=== PATIENT | female | born 1955 | race Caucasian/White ===

== ENCOUNTER → 2019-03-12 | Outpatient (CLI) | payer BC ==
[2019-03-12 10:33] LABS: HCT 45.2 % (34.0-46.0); HGB 14.4 gm/dL (11.4-16.0); MCH 27.8 pg (25.0-35.0); MCHC 31.8 g/dL (31.0-37.0); MCV 87.6 fL (80.0-100.0); Mean Platelet Volume 6.7; Platelet Count 286 k/uL (150-450); RBC 5.16 m/uL (3.80-5.40); RDW 13.6 % (11.5-15.5); WBC 7.7 k/uL (3.8-10.6)
[2019-03-12 10:47] LABS: Potassium 4.8 mmol/L (3.5-5.1)
== END ==
LOC: LABPAT 09:26
PROVIDERS: ATTEND Internal Medicine Cardiovascular Disease
DX: Z01.812 Encounter for preprocedural laboratory examination (principal); E78.2 Mixed hyperlipidemia; R93.1 Abnormal findings on diagnostic imaging of heart and coronary circulation
CPT/HCPCS: 80051; 82565; 82947; 84520; 85027

== ENCOUNTER 2019-03-19 07:47 | Day surgery (SDC) | payer BC ==
[2019-03-16 14:52] VITALS: BMI 36.6
[2019-03-19] MEDS ORDERED: SODIUM CHLORIDE 0.9% 1,000 ML IV ONE (08:01)
[2019-03-19] MEDS ORDERED: ASPIRIN 325 MG TAB PO STA (08:05)
[2019-03-19] MEDS ORDERED: SODIUM CHLORIDE 0.9% 1,000 ML in EMPTY BAG 1 BAG IV ONE (08:05)
[2019-03-19] MEDS ORDERED: NITROGLYCERIN SL TABS 0.4 MG TAB SUBLINGUAL PRN (08:05)
[2019-03-19] MEDS ORDERED: ALPRAZolam 0.25 MG TAB PO PRN (08:05)
[2019-03-19] MEDS ORDERED: ATORVASTATIN 80 MG TAB PO STA (08:05)
[2019-03-19] MEDS ORDERED: ALPRAZolam 0.5 MG TAB PO PRN (08:05)
[2019-03-19 08:32] LABS: Glucose,Whole Blood 110 mg/dL (75-99)
[2019-03-19 08:33] VITALS: TEMP 98.8
[2019-03-19] MEDS ORDERED: LIDOCAINE 1% INJ 10MG/ML (20 ML MDV) ONE (08:45)
[2019-03-19] MEDS ORDERED: fentaNYL (PF) 50 MCG/ML 2 ML AMP ONE (08:45)
[2019-03-19] MEDS ORDERED: MIDAZOLAM (PF) 2 MG/2 ML VIAL IV ONE (09:04)
[2019-03-19] MEDS ORDERED: LIDOCAINE 1% INJ 10MG/ML (20 ML MDV) SQ ONE (09:08)
[2019-03-19] MEDS ORDERED: IOPAMIDOL-370 125ML BTL INJ ONE (09:17)
[2019-03-19] MEDS ORDERED: RX INFO: IV CONTRAST WAS GIVEN 1 EACH MISC MISCELLANE PRN (09:21)
[2019-03-19] MEDS ORDERED: SODIUM CHLORIDE 0.9% 1,000 ML IV SCH (09:30)
--- NOTE | 2019-03-19 09:39 | CC ---
CARDIAC CATHETERIZATION REPORT INDICATION: Chest pain with abnormal stress test. PROCEDURE NOTE: After obtaining informed consent, left heart catheterization, coronary angiogram are performed via the right femoral artery using standard Zo catheters. Patient tolerated the procedure well without any obvious immediate complications. A femoral angiogram was performed, was made for manual hemostasis. FINDINGS: HEMODYNAMICS: Left ventricular end-diastolic pressure is 10-12 mm. There is no significant gradient across the aortic valve. LEFT VENTRICULOGRAM: Left ventriculogram is not performed. ANGIOGRAPHIC DATA LEFT MAIN CORONARY ARTERY: Left main coronary artery is a normal-sized vessel and is free of stenosis. Divides into left anterior descending coronary artery and circumflex coronary artery. LAD and its branches, circumflex coronary artery and its branches are free of significant stenosis. Right coronary artery is a large dominant vessel and is free of significant disease. CONCLUSION: 1. Normal coronary arteries. 2. Normal left ventricular end-diastolic pressure. PLAN: Patient's chest discomfort is noncardiac in origin and stress test is a false positive stress test. MMODL / IJN: [id number] /
[2019-03-19] MEDS ORDERED: HYDROcodone/APAP 10-325MG 1 EACH TAB ONE (10:13)
[2019-03-19 10:59] VITALS: RESP 16
[2019-03-19 16:36] VITALS: BP 106/65; PULSE 65
== END 2019-03-19 16:47 | disposition home or self-care (01) ==
LOC: CATHCVL 07:47
PROVIDERS: ATTEND Internal Medicine Cardiovascular Disease
DX: R07.89 Other chest pain (principal); R93.1 Abnormal findings on diagnostic imaging of heart and coronary circulation; I10 Essential (primary) hypertension; E11.9 Type 2 diabetes mellitus without complications; F17.210 Nicotine dependence, cigarettes, uncomplicated; E78.2 Mixed hyperlipidemia; Z82.49 Family history of ischemic heart disease and other diseases of the circulatory system; Z79.890 Hormone replacement therapy; Z79.899 Other long term (current) drug therapy
CPT/HCPCS: 93458; C1894; C1769; J2001; Q9967; J2250

== ENCOUNTER → 2019-05-07 | Outpatient (CLI) | payer BC ==
--- NOTE | 2019-05-07 09:09 | CT ---
EXAMINATION TYPE: CT chest w con DATE OF EXAM: 05/07/2019 COMPARISON: CT 2014 HISTORY: COPD, cough, SOB CT DLP: 607.4 mGycm. Automated Exposure Control for Dose Reduction was Utilized. TECHNIQUE: CT scan of the thorax is performed following with IV Contrast, patient injected with 100 mL of Isovue 300. FINDINGS: LUNGS: Moderate underlying chronic emphysematous and parenchymal fibrotic changes bilaterally with la tter most prominent in the lung bases near diaphragm. No suspicious nodules or masses. No suspicious focal consolidation. No pleural effusion or pneumothorax. MEDIASTINUM: There are no greater than 1 cm hilar or mediastinal lymph nodes. No pericardial effusi on is seen. Coronary artery calcification is seen which is noted marked underlying coronary artery d isease. Mild/moderate calcified plaque of the aorta OTHER: [id number] multilevel spurring in the thoracic spine. Stimulator device terminates mid thoracic spinal canal with some coiling noted inferiorly. Cholecystectomy clips are present. IMPRESSION: Mild emphysematous change upper lungs with mild bilateral fibrotic changes. No suspicious acute pulmonary process.
== END | disposition home or self-care (01) ==
LOC: RADCTMAIN 06:46
PROVIDERS: ATTEND Family Medicine
DX: J44.9 Chronic obstructive pulmonary disease, unspecified (principal); J47.9 Bronchiectasis, uncomplicated
CPT/HCPCS: 71260; Q9967

== ENCOUNTER → 2019-08-20 | Outpatient (CLI) | payer BC ==
--- NOTE | 2019-08-20 09:09 | MR ---
EXAMINATION TYPE: MR knee LT wo con DATE OF EXAM: 08/20/2019 COMPARISON: NONE HISTORY: Left knee pain prior order. History of prior surgery with patella removed. Patient states hi story of on and off pain for 40 weeks with increasing outer pain over last 6 weeks. TECHNIQUE: Multiplanar, multisequence images of the knee is performed without IV contrast. FINDINGS: Exam noted suboptimal due to patient's large body habitus, dedicated knee coil could not be utilized. MEDIAL MENISCUS: Anterior horn is intact without tear. Posterior horn shows truncated appearance with abnormal central irregular signal extending to articular surface. LATERAL MENISCUS: Posterior horn shows irregular linear signal extending to inferior articular surfac e sagittal maturity. Anterior horn is truncated with abnormal signal extending to articular surfaces. Lateral extrusion lateral meniscus seen on coronal images CRUCIATE LIGAMENTS: The posterior cruciate ligament is intact and unremarkable. Anterior cruciate lig ament is thickened with abnormal signal but fibers remain intact. COLLATERAL LIGAMENTS: The medial collateral ligament is intact and unremarkable. Biceps femoris is in tact. Other more anterior structures of lateral collateral ligament complex are not visualized suspec zay surgically absent or torn. Correlate clinically. EXTENSOR MECHANISM: Patella surgically absent thickening of the distal quadriceps tendon which contin ues into the patellar tendon with areas of increased signal. EFFUSION: No significant suprapatellar joint effusion. POPLITEAL CYST: No popliteal/ibanez cyst. TRICOMPARTMENT SPACES: Moderate narrowing and spurring medial tibiofemoral and lateral tibiofemoral c ompartments. CARTILAGE: Thinning of articular cartilage medial tibiofemoral compartment deep aspect. BONE MARROW SIGNAL: No focal abnormal marrow signal is appreciated. OTHER: No additional significant abnormality is appreciated. IMPRESSION: 1. Absent patella with tendinopathy of the anterior extensor tendon. 2. Full-thickness tear lateral meniscus involving anterior and posterior horns. 3. Full-thickness tear posterior horn medial meniscus. 4. Moderate degenerative changes medial and lateral tibiofemoral compartments as detailed above. 5. Myxoid degeneration ACL. 6. Suspect prior resection anterior portion lateral collateral ligament complex, correlate clinically . If not favor remote injury or tear as there is no suspicious osseous edema.
== END | disposition home or self-care (01) ==
LOC: RADMRIMAIN 08:04
PROVIDERS: ATTEND Orthopaedic Surgery
DX: M17.12 Unilateral primary osteoarthritis, left knee (principal); S83.282A Other tear of lateral meniscus, current injury, left knee, initial encounter; S83.242A Other tear of medial meniscus, current injury, left knee, initial encounter

== ENCOUNTER → 2019-09-08 | Outpatient (CLI) | payer BC ==
[2019-09-08 10:00] LABS: Basophils # (A) 0.1 k/uL (0-0.2); Basophils % (A) 1 %; Eosinophils # (A) 0.3 k/uL (0-0.7); Eosinophils % (A) 4 %; HCT 44.9 % (34.0-46.0); HGB 14.3 gm/dL (11.4-16.0); Lymphocytes # (A) 3.2 k/uL (1.0-4.8); Lymphocytes % (A) 42 %; MCH 28.8 pg (25.0-35.0); MCHC 31.7 g/dL (31.0-37.0); MCV 90.6 fL (80.0-100.0); Mean Platelet Volume 7.4; Monocytes # (A) 0.4 k/uL (0-1.0); Monocytes % (A) 5 %; Neutrophils # (A) 3.6 k/uL (1.3-7.7); Neutrophils % (A) 46 %; Platelet Count 284 k/uL (150-450); RBC 4.96 m/uL (3.80-5.40); RDW 12.6 % (11.5-15.5); WBC 7.7 k/uL (3.8-10.6)
[2019-09-08 10:07] LABS: Potassium 4.9 mmol/L (3.5-5.1)
== END | disposition home or self-care (01) ==
LOC: LABPAT 09:22
PROVIDERS: ATTEND Orthopaedic Surgery
DX: Z01.812 Encounter for preprocedural laboratory examination (principal); M23.92 Unspecified internal derangement of left knee
CPT/HCPCS: 36415; 80051; 85025

== ENCOUNTER 2019-09-23 08:49 | Day surgery (SDC) | payer BC ==
[2019-09-21 09:30] VITALS: BMI 41.1
--- NOTE | 2019-09-22 14:04 | HP ---
HISTORY AND PHYSICAL DATE OF SURGERY: 09/23/2019 Nanette Fisher is a 64-year-old patient seen with progressive left knee pain. We discussed options for treatment. She elected to proceed with arthroscopy. Consent was obtained. PAST MEDICAL HISTORY: Hypertension, hyperlipidemia, hypothyroidism, gastroesophageal reflux disease. PAST SURGICAL HISTORY: Left knee arthroscopy, cervical fusion. MEDICATIONS: 1. Diovan/hydrochlorothiazide. 2. Glipizide. 3. Lipitor. 4. [place]. 5. . 6. Synthroid. ALLERGIES: None. SOCIAL HISTORY: She denies current tobacco use. PHYSICAL EVALUATION OF THE LEFT KNEE: Range of motion is -3 to 130 degrees. There is a mild effusion present. She is tender along the medial joint line. Tender along lateral joint line. Positive medial Christi's. Positive lateral Christi's. Crepitus medial lateral compartments with range of motion. Ligaments are stable. Hip rotation is without pain. Distal neurovascular exam is intact. RADIOGRAPHS OF THE LEFT KNEE: Reveal osteoarthritic changes. Evidence of previous patellectomy. An MRI left knee revealed medial and lateral meniscal tears. IMPRESSION: 1. Internal derangement, left knee with medial and lateral meniscal tears. 2. Left knee osteoarthritis. 3. History of previous left knee patellectomy. 4. Hypertension. 5. Hyperlipidemia. PLAN: Left knee arthroscopy with partial meniscectomy, partial synovectomy and debridement. MMODL / IJN: [id number] /
[~2019-09-23 08:49] MED LIST: LACTATED RINGERS 1,000 ML IV SCH; LIDOCAINE 1% 20 ML VIAL (10MG/ML) FOR IV START INTRADERMA PRN; ONDANSETRON 4 MG/2 ML VIAL IVP ONE
[2019-09-23 09:27] LABS: Glucose,Whole Blood 182 mg/dL (75-99)
[2019-09-23] MEDS ORDERED: SCOPOLAMINE 1.5MG/72HR PATCH TRANSDERM ONE (09:27)
[2019-09-23] MEDS ORDERED: PROPOFOL 10 MG/ML 20 ML VIAL IV ONE (10:10)
[2019-09-23] MEDS ORDERED: LIDOCAINE 1% INJ 10MG/ML (20 ML MDV) ONE (10:10)
[2019-09-23] MEDS ORDERED: PHENYLEPHRINE-0.9% NACL SYG 1 MG/10 ML SYRINGE ONE (10:10)
[2019-09-23] MEDS ORDERED: fentaNYL (PF) 50 MCG/ML 2 ML AMP ONE (10:10)
[2019-09-23] MEDS ORDERED: BUPIVACAINE (PF) 0.25% 30 ML VIAL INTRAARTIC ONE (10:11)
[2019-09-23 11:07] VITALS: TEMP 98.2
[2019-09-23] MEDS: HYDROmorphone 0.5 MG/0.5 ML SYRINGE IVP PRN ×4 (11:13→11:35)
--- NOTE | 2019-09-23 11:14 | P.OP ---
Date of Procedure: 09/23/19 Preoperative Diagnosis: Internal derangement left knee Postoperative Diagnosis: 1. Tear lateral meniscus left knee 2. Reactive synovitis medial, lateral and suprapatellar compartments left knee Procedure(s) Performed: 1. Arthroscopic partial lateral meniscectomy left knee 2. Arthroscopic partial synovectomy medial, lateral and suprapatellar compartments left knee Anesthesia: CARLITOSA, local Surgeon: Willie Etienne Estimated Blood Loss (ml): 8 Pathology: none sent Condition: stable Disposition: PACU Indications for Procedure: 64-year-old patient seen with progressive left knee pain. After having treatment options discussed, she elected to proceed with arthroscopy. Operative Findings: See description of procedure Description of Procedure: Patient was taken to the operative suite. Patient underwent a general anes thetic by the department of anesthesia. Patient was given preoperative antibiotics. The left lower extremity was placed in a well-padded arthroscopic leg kilgore. The left leg was prepped and draped in the normal sterile orthopedic fashion. A lateral parapatellar and suprapatellar incision was made. Trochars were inserted. Arthroscopy was initiated. Suprapatellar pouch revealed diffuse thick reactive synovitis. The patella was absent with history of previous patellectomy. The scope was guided into the medial gutter. No loose bodies or plica were identified . The scope was then guided into the medial compartment. A medial parapatellar incision was made. Trocar inserted followed by probe. There was some fraying along the posterior medial meniscus. There were grade 2 chondromalacia changes the medial femoral condyle with no osteochondral flap tears present. There was thick reactive synovitis anteriorly. I debrided that superficial fraying of the meniscus posteriorly. I performed a partial synovectomy decompressing the thick reactive synovitis. The shaver was removed. There was good decompression of the synovitis. Scope and probe were then guided into the intercondylar notch. Cruciates were identified, probed and found to be stable. The scope and probe were then guided into lateral compartment. The lateral meniscus revealed a complex tear involving the anterior horn and midbody which did extend to the posterior horn. There were grade 2/3 chondromalacia changes lateral compartment with no osteochondral tears present. There was thick reactive synovitis anteriorly. I performed a partial lateral meniscectomy. I performed a partial synovectomy decompressing the reactive synovitis. The residual meniscus was stable. There was good decompression of the synovitis. The scope was in guided back into the suprapatellar compartment. I introduced a motorized shaver into the suprapatellar compartment. I debrided some piecemeal fragments of meniscus I encountered. I performed a partial synovectomy. Shaver was removed. I took one more look on the entire knee, no residual debris. Instruments were now removed from the joint. The joint was infiltrated with .25% Marcaine. Steri- Strips were applied to the portal sites. Sterile dressings were applied. The patient was placed into a GOLDIE hose. No tourniquet was utilized. The patient was awakened, transferred to a bed and taken to recovery stable satisfactory condition.
[2019-09-23] MEDS ORDERED: LACTATED RINGERS 1,000 ML IV ONE (11:34)
[2019-09-23 11:36] VITALS: RESP 16
[2019-09-23 12:30] VITALS: BP 130/84; PULSE 70
== END 2019-09-23 13:11 | disposition home or self-care (01) ==
LOC: OR 08:49
PROVIDERS: ATTEND Orthopaedic Surgery
DX: S83.272A Complex tear of lateral meniscus, current injury, left knee, initial encounter (principal); S83.242A Other tear of medial meniscus, current injury, left knee, initial encounter; M94.262 Chondromalacia, left knee; M65.9 Synovitis and tenosynovitis, unspecified; M17.12 Unilateral primary osteoarthritis, left knee; I10 Essential (primary) hypertension; E11.9 Type 2 diabetes mellitus without complications; E78.5 Hyperlipidemia, unspecified; J44.9 Chronic obstructive pulmonary disease, unspecified; E03.9 Hypothyroidism, unspecified; E66.01 Morbid (severe) obesity due to excess calories; K21.9 Gastro-esophageal reflux disease without esophagitis; Z98.1 Arthrodesis status; Z79.890 Hormone replacement therapy; Z79.891 Long term (current) use of opiate analgesic; Z79.84 Long term (current) use of oral hypoglycemic drugs; Z68.41 Body mass index [BMI] 40.0-44.9, adult; Z79.82 Long term (current) use of aspirin; Z79.899 Other long term (current) drug therapy; Z87.891 Personal history of nicotine dependence; X58.XXXA Exposure to other specified factors, initial encounter
CPT/HCPCS: 29881; 29876; J0690; J2405; J2001; J3010; J2370; J2704; J1170

== ENCOUNTER → 2020-02-10 | Outpatient (CLI) | payer BC ==
--- NOTE | 2020-02-10 11:57 | MR ---
EXAMINATION TYPE: MR knee RT wo con DATE OF EXAM: 02/10/2020 COMPARISON: Prior right knee x-ray January 11, 2020. HISTORY: Right Knee pain, [place]. Surg hx 30years ago. TECHNIQUE: Multiplanar, multisequence images of the knee is performed without IV contrast. FINDINGS: MEDIAL MENISCUS: Anterior horn is intact without tear. Posterior horn is truncated particularly along the posterior superior margin with 3 to 4 mm para meniscal cyst sagittal image 8. Central increased signal is present. LATERAL MENISCUS: Posterior horn is intact without tear. Anterior horn is abnormal with irregular inc reased signal along the anterior aspect extending to inferior articular surface sagittal image 24 for reference. CRUCIATE LIGAMENTS: The anterior and posterior cruciate ligaments are intact and unremarkable. COLLATERAL LIGAMENTS: The medial collateral ligament and lateral collateral ligament complex are inta ct and unremarkable. EXTENSOR MECHANISM: Visualized quadriceps and patellar tendons are intact. EFFUSION: There is large suprapatellar joint effusion. POPLITEAL CYST: No popliteal/ibanez cyst. TRICOMPARTMENT SPACES: Moderate narrowing patellofemoral compartment and medial tibiofemoral compartm ent. Mild tricompartment joint space burning. CARTILAGE: Evidence for chondromalacia patella with fissuring and cartilaginous loss along the die storage clerk ior patellar pole. There is additional fissuring and cartilaginous loss posterior deep aspect of the lateral tibial femoral compartment. BONE MARROW SIGNAL: Heterogeneous increased T2 signal involving the lateral tibial plateau centered p osteriorly with small irregular focus of low T1 signal seen best on sagittal image 26 and axial image 22 abutting the articular surface measuring approximately 5 mm in length. OTHER: No additional significant abnormality is appreciated. IMPRESSION: 1. Full-thickness tear posterior horn of medial meniscus. 2. Full-thickness tear anterior horn of lateral meniscus. 3. Fairly moderate tricompartment degenerative changes as detailed above. 4. Large suprapatellar joint effusion. 5. Small 5 mm subchondral insufficiency fracture with associated bone marrow edema centered posterior lateral aspect of the lateral tibial plateau. 6. Moderate tricompartment degenerative changes as detailed above.
== END | disposition home or self-care (01) ==
LOC: RADMRIMAIN 10:42
PROVIDERS: ATTEND Orthopaedic Surgery
DX: S83.241A Other tear of medial meniscus, current injury, right knee, initial encounter (principal); S83.281A Other tear of lateral meniscus, current injury, right knee, initial encounter; M25.861 Other specified joint disorders, right knee; M84.48XA Pathological fracture, other site, initial encounter for fracture

== ENCOUNTER → 2020-02-16 | Outpatient (CLI) | payer BC ==
[2020-02-16 12:39] LABS: Potassium 4.7 mmol/L (3.5-5.1)
[2020-02-16 12:52] LABS: Basophils % (A) 1 %; Eosinophils # (A) 0.2 k/uL (0-0.7); Eosinophils % (A) 3 %; HCT 42.2 % (34.0-46.0); HGB 13.4 gm/dL (11.4-16.0); Hypochromasia Moderate; Lymphocytes # (A) 1.8 k/uL (1.0-4.8); Lymphocytes % (A) 29 %; MCH 28.9 pg (25.0-35.0); MCHC 31.8 g/dL (31.0-37.0); Mean Platelet Volume 7.9; Monocytes # (A) 0.3 k/uL (0-1.0); Monocytes % (A) 4 %; Neutrophils # (A) 3.8 k/uL (1.3-7.7); Neutrophils % (A) 61 %; Platelet Count 246 k/uL (150-450); RBC 4.64 m/uL (3.80-5.40); RDW 13.2 % (11.5-15.5); WBC 6.2 k/uL (3.8-10.6)
== END | disposition home or self-care (01) ==
LOC: LABPAT 10:40
PROVIDERS: ATTEND Orthopaedic Surgery
DX: Z01.818 Encounter for other preprocedural examination (principal); M23.91 Unspecified internal derangement of right knee
CPT/HCPCS: 36415; 80051; 85025; 93005

== ENCOUNTER → 2020-02-21 | Day surgery (SDC) | payer BC ==
[2020-02-18 10:18] VITALS: BMI 43.9
--- NOTE | 2020-02-20 10:51 | HP ---
HISTORY AND PHYSICAL Surgery 02/21/2020 Nanette Fisher is a 64-year-old patient seen with progressive right knee pain. We discussed options for treatment. She elected to proceed with arthroscopy. Consent was obtained. PAST MEDICAL HISTORY: Hypertension, hyperlipidemia, qbo-pysljld-xcvpkmjgo diabetes, hypothyroidism. PAST SURGICAL HISTORY: Left knee arthroscopy, cervical fusion. DAILY MEDICATIONS: Aspirin, Diovan, glipizide, Lipitor, [place], Protonix, Synthroid, Topamax. ALLERGIES: None. SOCIAL HISTORY: She denies current tobacco use. PHYSICAL EXAMINATION: Evaluation right knee range of motion is -2 to 70. She has a moderate effusion. Tenderness medial joint line. Positive medial Christi's. Ligaments stable. Hip rotation without pain. Distal neurovascular exam is intact. Right knee radiographs revealed moderate medial compartment osteoarthritis. An MRI of the right knee revealed medial meniscal tear, lateral meniscal tear, and osteoarthritic changes. IMPRESSION: 1. Internal derangement, right knee with medial and lateral meniscal tears. 2. Right knee osteoarthritis. 3. Hypertension. 4. Hyperlipidemia. 5. Wim-flyvxxs-twubbsfls diabetes. 6. Hypothyroidism. PLAN: Right knee arthroscopy with partial meniscectomy, partial synovectomy and debridement. MMODL / IJN: [id number] /
[~2020-02-21] MED LIST changes: +BUPIVACAINE (PF) 0.25% 30 ML VIAL SQ ONE; +DEXAMETHASONE SOD PHOSPHATE 10 MG/ML 1 ML VIAL IV ONE; +KETOROLAC 30 MG/ML 1 ML VIAL IVP ONE; +LACTATED RINGERS 1,000 ML IV ONE; -LIDOCAINE 1% 20 ML VIAL (10MG/ML) FOR IV START INTRADERMA PRN; +LIDOCAINE 1% INJ 10MG/ML (20 ML MDV) ONE; +MIDAZOLAM 2 MG/2 ML VIAL IV PRN; +MIDAZOLAM 2 MG/2 ML VIAL ONE; +ONDANSETRON 4 MG/2 ML VIAL ONE; +PROPOFOL 10 MG/ML 20 ML VIAL IV ONE; +SUCCINYLCHOLINE CHLORIDE 100 MG/5 ML SYR IV ONE; +diphenhydrAMINE 50 MG/ML 1 ML VIAL IVP ONE; +fentaNYL (PF) 50 MCG/ML 2 ML AMP ONE
[2020-02-21 12:33] LABS: Glucose,Whole Blood 176 mg/dL (75-99)
[2020-02-21] MEDS: HYDROmorphone 0.5 MG/0.5 ML SYRINGE IVP PRN ×3 (13:14→13:26)
--- NOTE | 2020-02-21 13:20 | P.OP ---
Date of Procedure: 02/21/20 Preoperative Diagnosis: Internal derangement right knee Postoperative Diagnosis: 1. Tear lateral meniscus right knee 2. Grade 4 chondromalacia medial femoral condyle right knee 3. Grade 3/4 chondromalacia lateral femoral condyle right knee 4. Reactive synovitis medial, lateral and super patellar compartments right knee Procedure(s) Performed: 1. Arthroscopic partial lateral meniscectomy right knee 2. Arthroscopic chondroplasty medial femoral condyle right knee 3. Arthroscopic microfracture medial femoral condyle right knee 4. Arthroscopic chondroplasty lateral femoral condyle right knee 5. Arthroscopic partial synovectomy medial, lateral and suprapatellar compartments right knee Anesthesia: CINDA, local Surgeon: Willie Etienne Estimated Blood Loss (ml): 7 Pathology: none sent Condition: stable Disposition: PACU Indications for Procedure: 64-year-old patient seen with progressive right knee pain. After treatment options were discussed, she elected to proceed with arthroscopy. Operative Findings: See description of procedure Description of Procedure: Patient was taken to the operative suite. Patient underwent a general anesthetic by the department of anesthesia. Patient was given preoperative ant ibiotics. The right lower extremity was placed in a well-padded arthroscopic leg kilgore. The right leg was prepped and draped in the normal sterile orthopedic fashion. A lateral parapatellar and suprapatellar incision was made. Trochars were inserted. Arthroscopy was initiated. Suprapatellar pouch revealed diffuse thick reactive synovitis. The patellofemoral joint appeared to articulate congruently. There was grade 2 chondromalacia of the patella with no osteochondral tears present. The scope was guided into the medial gutter. No loose bodies or plica were identified. The scope was then guided into the medial compartment. A medial parapatellar incision was made. Trocar inserted followed by probe. There was some fraying posterior horn medial meniscus. There were grade 4, changes medial femoral condyle with osteochondral flap tears present. There was thick reactive synovitis anteriorly. I performed a chondroplasty medial femoral condyle. I debrided the anterior fraying in the meniscus. I performed a partial synovectomy decompressing reactive synovitis. There was good decompression of synovitis. There was one area of exposed bone. I performed a microfracture to the area penetrating the bone with some resultant bleeding at the microfracture site. Scope and probe were then guided into the intercondylar notch. Cruciates were identified, probed and found to be table. The scope and probe were then guided into lateral compartment. There was a complex tear lateral meniscus along the anterior horn and midbody. There were grade 3 chondromalacia changes lateral femoral condyle with areas of delamination of the articular surface and osteochondral flap tears. There was thick reactive synovitis anteriorly. I performed a partial lateral meniscectomy. I performed a chondroplasty of the lateral femoral condyle. I performed a partial synovectomy decompressing reactive synovitis. The residual meniscus was stable. The residual osteochondral surface was stable with grade 3 and approaching 4 chondromalacia there. There was good decompression of synovitis. The scope was in guided back into the suprapatellar compartment. I introduced my motorized shaver into the suprapatellar compartment. I debrided some piecemeal fragments of meniscus I encountered. I performed a partial synovectomy decompressing reactive synovitis. The shaver was removed. I took one more look around the entire knee, no residual debris. Instruments were now removed from the joint. The joint was infiltrated with .25% Marcaine. Steri- Strips were applied to the portal sites. Sterile dressings were applied. The patient was placed into a GOLDIE hose. No tourniquet was utilized. The patient was awakened, transferred to a bed and taken to recovery stable satisfactory condition.
[2020-02-21 13:23] VITALS: TEMP 97
[2020-02-21 14:04] VITALS: RESP 16
[2020-02-21 14:21] VITALS: PULSE 76
[2020-02-21 14:25] VITALS: BP 125/76
== END | disposition home or self-care (01) ==
LOC: OR 11:23
PROVIDERS: ATTEND Orthopaedic Surgery
DX: S83.281A Other tear of lateral meniscus, current injury, right knee, initial encounter (principal); S83.241A Other tear of medial meniscus, current injury, right knee, initial encounter; X58.XXXA Exposure to other specified factors, initial encounter; M22.41 Chondromalacia patellae, right knee; M65.861 Other synovitis and tenosynovitis, right lower leg; M17.11 Unilateral primary osteoarthritis, right knee; I10 Essential (primary) hypertension; E78.5 Hyperlipidemia, unspecified; E11.8 Type 2 diabetes mellitus with unspecified complications; J44.9 Chronic obstructive pulmonary disease, unspecified; E03.9 Hypothyroidism, unspecified; Z98.1 Arthrodesis status; Z98.890 Other specified postprocedural states; Z79.84 Long term (current) use of oral hypoglycemic drugs; Z79.82 Long term (current) use of aspirin; Z79.890 Hormone replacement therapy; Z79.891 Long term (current) use of opiate analgesic; Z79.899 Other long term (current) drug therapy
CPT/HCPCS: 29880; 29879; J2250; J1200; J1100; J0690; J2405; J2001; J3010; J1885; J0330; J2704; J1170

== ENCOUNTER → 2022-06-18 | Outpatient (CLI) | payer MEDICARE ==
--- NOTE | 2022-06-19 21:38 | CTL ---
EXAMINATION TYPE: CT Low Dose Lung DATE OF EXAM ORDERED: 06/18/2022 HISTORY: Long-term tobacco use. Lung cancer screening CT DLP: [address] CTDI: 4.0 mGy Automated exposure control for dose reduction was used. SCREENING VISIT: Baseline COMPARISON: Prior chest CT May 07, 2019 TECHNIQUE: Low dose computed tomography scan was performed through the chest at 1 mm thick sections a nd reconstructed images in multiple planes at 1 mm and [address] DIAGNOSTIC QUALITY: Satisfactory FINDINGS: LUNG NODULES: Present, detailed below: Occasional scattered small nodule. For reference there is 3 to 4 mm left upper lobe nodule axial imag e 51 series 15. For reference there is 4 x 3 mm left lower lobe nodule axial image 175. No significan t greater than 5 mm pulmonary nodules seen bilaterally. LUNGS: COPD: Severity: Mild Fibrosis: Severity: None Lymph nodes: None Other findings: None RIGHT PLEURAL SPACE: Effusion: None Calcification: None Thickening: None Pneumothorax: None LEFT PLEURAL SPACE: Effusion: None Calcification: None Thickening: None Pneumothorax: None HEART: Heart Size: Normal Coronary Calcification: At least moderate Pericardial Effusion: None OTHER FINDINGS: Upper abdomen: None Bony thorax: Underlying scoliotic curvature. Multilevel spurring and bridging osteophytes. Supraclavicular region: None Other: None IMPRESSION: Few scattered small nodules. No new or enlarging greater than [address] LUNG RAD AND CT CHEST RECOMMENDATION: Lung-Rad 2 Benign Appearance or Behavior: Continue annual sc reening with LDCT in 12 months. S Modifier (other clinically significant findings): None
== END | disposition home or self-care (01) ==
LOC: RADCTMAIN 14:38
PROVIDERS: ATTEND Family Medicine
DX: Z87.891 Personal history of nicotine dependence (principal)
CPT/HCPCS: 71271

== ENCOUNTER → 2023-02-11 | Outpatient (CLI) | payer MEDICARE, OTHER ==
--- NOTE | 2023-02-11 11:03 | MR ---
EXAMINATION TYPE: MR angio head wo con DATE OF EXAM: 02/11/2023 COMPARISON: NONE HISTORY: Headache TECHNIQUE: Utilizing 3-D [id number] intracranial MRA of the wiyot of Christopher was performed. FINDINGS: The vertebrobasilar and carotid systems are patent. There is no sizable aneurysm or vascular malform ation. Left vertebral artery is dominant. There is a hypoplastic A1 segment of the left anterior cer ebral artery. IMPRESSION: 1. No evidence of vascular malformation or sizable aneurysm.
--- NOTE | 2023-02-11 11:03 | MR ---
EXAMINATION TYPE: MR brain wo/w con DATE OF EXAM: 02/11/2023 COMPARISON: HISTORY: Headache TECHNIQUE: Multiplanar, multisequence images of the brain and brainstem is performed without and with IV contras t, utilizing 9 mL intravenous Gadavist . FINDINGS: Diffusion weighted images demonstrate no evidence of a recent infarct or other diffusion ab normality. There multiple scattered areas of focal abnormal signal throughout the white matter which is nonspecific. Mild generalized degenerative change. The brain volume is age appropriate. Midline structures demonstrate normal morphology. Low-lying cerebellar tonsils at the level of forame n magnum.. Post contrast images demonstrate no abnormal enhancement. The dural venous sinuses appear patent. Mild changes of chronic sinusitis. Orbits are symmetric. There is a 2 mm area of reduced enh ancement in the posterior margin of the pituitary gland paracentral right suspicious for a tiny micro adenoma. IMPRESSION: 1. No acute process. Mild generalized degenerative change and nonspecific white matter changes most t ypical of remote microvascular ischemia. 2. Low-lying cerebellar tonsils at the level of foramen magnum. No tonsillar beaking. 3. There is a 2 mm area of reduced enhancement involving the pituitary gland suggestive of a small pi tuitary adenoma. 4. Mild chronic sinusitis.
== END | disposition home or self-care (01) ==
LOC: RADMRIMAIN 09:13
PROVIDERS: ATTEND Family Medicine
DX: I67.82 Cerebral ischemia (principal); R90.82 White matter disease, unspecified; G93.2 Benign intracranial hypertension; J32.9 Chronic sinusitis, unspecified
CPT/HCPCS: 70544; 70553; A9585

== ENCOUNTER → 2023-05-02 | Outpatient (CLI) | payer MEDICARE, OTHER ==
[2023-05-02 14:37] LABS: ALT 19 U/L (4-34); AST 23 U/L (14-36); African American GFR (CKD) 45 (>60 ml/min/1.73 sqM); Albumin 4.4 g/dL (3.5-5.0); Albumin/Globulin Ratio 1.6; Alkaline Phosphatase 63 U/L (38-126); Anion Gap 11 mmol/L; Blood Urea Nitrogen 30 mg/dL (7-17); Calcium 10.1 mg/dL (8.4-10.2); Carbon Dioxide 24 mmol/L (22-30); Chloride 104 mmol/L (98-107); Globulin 2.8 g/dL; Glucose 129 mg/dL (74-99); Non-African American GFR(CKD) 39 (>60 ml/min/1.73 sqM); Potassium 4.3 mmol/L (3.5-5.1); Sodium 139 mmol/L (137-145); Total Bilirubin 0.7 mg/dL (0.2-1.3); Total Protein 7.2 g/dL (6.3-8.2)
== END | disposition home or self-care (01) ==
LOC: RADCTMAIN 04-24 13:19
PROVIDERS: ATTEND Neurological Surgery
DX: Z53.9 Procedure and treatment not carried out, unspecified reason (principal)
CPT/HCPCS: 80053

== ENCOUNTER → 2023-05-27 | Outpatient (CLI) | payer MEDICARE, OTHER ==
--- NOTE | 2023-05-28 08:25 | MM ---
Reason for Exam: Screening (asymptomatic). Last mammogram was performed 12 year(s) and 8 month(s) ago. Patient History: Menarche at age 11. Patient has no children. Postmenopausal. Risk Values: Rolanda 5 year model risk: 1.9%. NCI Lifetime model risk: 6.2%. Prior Study Comparison: 11/21/2003 Bilateral Screening Mammogram, [facility]. 10/10/2010 Bilateral Screening Mammogram, [facility]. Tissue Density: There are scattered fibroglandular densities. 80 lb wt loss last 4 yrs. Findings: Analyzed By CAD. There is no suspicious group of microcalcifications or new suspicious mass. Overall Assessment: Negative, BI-RAD 1 Management: Screening Mammogram of both breasts in [address] [facility] will attempt to contact patient to return for supplemental views and ultrasound if indicated. Patient should continue monthly self-breast exams. A clinical breast exam by your physician is recommended on an annual basis. This exam should not preclude additional follow-up of suspicious palpable abnormalities. Note on Rolanda scores and lifetime risk: 1. A Rolanda score greater than 3% is considered moderate risk. If this is the case, consider specialist referral to assess eligibility for a risk reducing agent. 2. If overall lifetime risk for the development of breast cancer is 20% or higher, the patient may qualify for future screening with alternating mammogram and breast MRI. Electronically signed and approved by: Edi Mcarthur DO
== END | disposition home or self-care (01) ==
LOC: RADMAMWWP 10:35
PROVIDERS: ATTEND Family Medicine
DX: Z12.31 Encounter for screening mammogram for malignant neoplasm of breast (principal); Z78.0 Asymptomatic menopausal state
CPT/HCPCS: 77063; 77067

== ENCOUNTER → 2025-01-03 | Outpatient (CLI) | payer MEDICARE ==
--- NOTE | 2025-01-03 13:31 | CTL ---
EXAMINATION TYPE: CT Low Dose Lung DATE OF EXAM ORDERED: 01/03/2025 COMPARISON: CT Low Dose Lung 06/18/2022, CT chest 05/07/2019 CLINICAL INDICATION: Female, 69 years old with history of Z12.2 ENCNTR SCREEN FOR Z87.891 NICOTINE DE PENDENC; PHH, HISTORY OF SMOKER, Lung cancer screening, History of Smoking/tobacco use. TECHNIQUE: Low dose computed tomography scan was performed through the chest at 1 mm thick sections a nd reconstructed images in multiple planes at 1 mm and [address] DLP: [address] CTDI: 2.4 mGy Automated exposure control for dose reduction was used. CT DIAGNOSTIC QUALITY: Satisfactory FINDINGS: Nodules: Few stable small pulmonary nodules. Examples include a left upper lobe 3.4 mm pulmonary nodule (serie s 4, image 60) and a left lower lobe 3.0 mm pulmonary nodule (series 4, image 177). No definitive new or enlarging pulmonary nodules. LUNGS: COPD: Severity: Mild Fibrosis: Severity: None Lymph nodes: None Other findings: None RIGHT PLEURAL SPACE: Effusion: None Calcification: None Thickening: None Pneumothorax: None LEFT PLEURAL SPACE: Effusion: None Calcification: None Thickening: None Pneumothorax: None HEART: Heart Size: Normal Coronary Calcification: Mild to moderate Pericardial Effusion: None OTHER FINDINGS: Upper abdomen: Gallbladder is surgically absent. Bony thorax: Partial visualization of anterior cervical fusion hardware. Bilateral shoulder arthropat hy. Mild dextrocurvature of the thoracic spine. DISH of the thoracic spine. Stimulator leads identifi ed within the thoracic spinal canal again with some coiling noted inferiorly. Supraclavicular region: None Other: None IMPRESSION: 1. Few stable pulmonary nodules measuring less than 4 mm. No new or enlarging pulmonary nodules. 2. Mild emphysematous changes. CT LUNG RAD AND CT CHEST RECOMMENDATION: Lung-Rad 2 Benign Appearance or Behavior: Continue annual sc reening with LDCT in 12 months. S Modifier (other clinically significant findings): None [facility], , 01/03/2025 1:28 PM
== END | disposition home or self-care (01) ==
LOC: RADCTMAIN 12:59
PROVIDERS: ATTEND Family Medicine
DX: Z12.2 Encounter for screening for malignant neoplasm of respiratory organs (principal); R91.8 Other nonspecific abnormal finding of lung field; J43.9 Emphysema, unspecified; Z87.891 Personal history of nicotine dependence
CPT/HCPCS: 71271

== ENCOUNTER → 2025-03-04 | Outpatient (CLI) | payer MEDICARE ==
--- NOTE | 2025-03-04 13:33 | MM ---
Reason for Exam: Screening (asymptomatic). Last mammogram was performed 1 year(s) and 9 month(s) ago. Patient History: Menarche at age 11. Patient has no children. Postmenopausal. Risk Values: Rolanda 5 year model risk: 1.9%. NCI Lifetime model risk: 5.6%. Prior Study Comparison: 11/21/2003 Bilateral Screening Mammogram, [facility]. 10/10/2010 Bilateral Screening Mammogram, [facility]. 05/27/2023 Bilateral MG 3D screening mammo w/cad, [facility]. Tissue Density: There are scattered areas of fibroglandular density. Findings: Analyzed By CAD. There are a few tiny benign-appearing round calcifications in the right breast. There is no suspicious group of microcalcifications or new suspicious mass in either breast. Overall Assessment: Benign, BI-RAD 2 Management: Screening Mammogram of both breasts in 1 year. . Patient should continue monthly self-breast exams. A clinical breast exam by your physician is recommended on an annual basis. This exam should not preclude additional follow-up of suspicious palpable abnormalities. Note on Rolanda scores and lifetime risk: 1. A Rolanda score greater than 3% is considered moderate risk. If this is the case, consider specialist referral to assess eligibility for a risk reducing agent. 2. If overall lifetime risk for the development of breast cancer is 20% or higher, the patient may qualify for future screening with alternating mammogram and breast MRI. [facility], , 03/04/2025 1:30 PM. Electronically signed and approved by: Rigo Nguyen M.D.
== END | disposition home or self-care (01) ==
LOC: RADMAMWWP 13:06
PROVIDERS: ATTEND Family Medicine
DX: Z12.31 Encounter for screening mammogram for malignant neoplasm of breast (principal); R92.323 Mammographic fibroglandular density, bilateral breasts; Z78.0 Asymptomatic menopausal state
CPT/HCPCS: 77063; 77067